=== PATIENT | female | born 1970 | race Caucasian/White ===

== ENCOUNTER 2016-11-13 14:24 | Emergency (ER) | payer SELFPAY ==
[~2016-11-13] VITALS: Ht 162.6 cm; Wt 59.1 kg
[~2016-11-13 14:24] MED LIST: NOMED
[2016-11-13 14:30] VITALS: BP 121/75; PULSE 82; RESP 20; O2SAT 99
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
[2016-11-13] MEDS ORDERED: Mupirocin 2% 22 Gm Ointment TOPICAL ONE (15:25)
--- NOTE | 2016-11-13 16:44 | DRSVH ---
PROCEDURE: X-RAY CHEST, TWO VIEWS ([id number]) INDICATIONS: cough TECHNIQUE: 2 views of the chest were acquired. COMPARISON: None. FINDINGS: Surgical changes and devices: None. Lungs and pleura: No pleural effusions or pneumothorax. Lungs are clear. Mediastinum: Mediastinal contours are normal. Heart size is normal. Bones and chest wall: No suspicious bony abnormalities. Soft tissues appear unremarkable. IMPRESSION: 1. No acute cardiopulmonary disease. Dictated by: Zan Arvizu M.D. on 11/13/2016 at 16:42 Approved by: Zan Arvizu M.D. on 11/13/2016 at 16:42
--- NOTE | 2016-11-13 16:47 | DRSVH ---
PROCEDURE: X-RAY LEFT SHOULDER, MINIMUM TWO VIEWS ([id number]) INDICATIONS: pain TECHNIQUE: 3 views of the shoulder were acquired. COMPARISON: [facility], CR, XR CHEST 2VW, 11/13/2016, 15:56. FINDINGS: Bones: There is subluxation of the acromioclavicular joint with superior displacement of the distal clavicle by approximately one shaft width. No fractures identified. No suspicious bony lesions. Vi sualized ribs appear intact. Soft tissues: No suspicious soft tissue calcifications. IMPRESSION: 1. Subluxation of the acromioclavicular joint. Dictated by: Zan Arvizu M.D. on 11/13/2016 at 16:46 Approved by: Zan Arvizu M.D. on 11/13/2016 at 16:46
== END 2016-11-13 19:03 | disposition left against medical advice (07) ==
LOC: SED 14:24
DX: T24.211A Burn of second degree of right thigh, initial encounter (principal); T31.0 Burns involving less than 10% of body surface; M25.512 Pain in left shoulder; F15.10 Other stimulant abuse, uncomplicated; X97.XXXA Assault by smoke, fire and flames, initial encounter; Y93.89 Activity, other specified; Y92.9 Unspecified place or not applicable; Y99.8 Other external cause status; Z59.0 Homelessness; F17.200 Nicotine dependence, unspecified, uncomplicated; Z90.49 Acquired absence of other specified parts of digestive tract

== ENCOUNTER 2016-11-14 04:57 | Emergency (ER) | payer SELFPAY ==
[~2016-11-14] VITALS: Ht 162.6 cm; Wt 59.1 kg
[2016-11-14 04:58] VITALS: BP 125/85; PULSE 113; RESP 18; O2SAT 98
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
== END 2016-11-14 09:18 | disposition left against medical advice (07) ==
LOC: SED 04:57
DX: F15.10 Other stimulant abuse, uncomplicated (principal); M25.512 Pain in left shoulder; F17.200 Nicotine dependence, unspecified, uncomplicated; Z87.828 Personal history of other (healed) physical injury and trauma; Z59.0 Homelessness